=== PATIENT | female | born 1980 | race Caucasian/White ===

== ENCOUNTER 2022-06-10 09:26 | Emergency (ER) | payer OTHER ==
[~2022-06-10] VITALS: Ht 157.5 cm; Wt 54.4 kg
[2022-06-10] MEDS ORDERED: IV NORMAL SALINE 1000 ML BAG IV ONE (09:45)
[2022-06-10] MEDS ORDERED: PROCHLORPERAZINE EDISYLATE 10 MG/2 ML VIAL IM ONE (09:45)
[2022-06-10] MEDS ORDERED: METOCLOPRAMIDE HCL 10 MG/2 ML VIAL IV ONE (09:45)
[2022-06-10] MEDS ORDERED: ONDANSETRON ODT 4 MG TAB.RAPDIS SL ONE (09:45)
[2022-06-10] MEDS ORDERED: ONDANSETRON ODT 4 MG TAB.RAPDIS ONE (09:45)
[2022-06-10] MEDS ORDERED: FAMOTIDINE. 20 MG/2 ML VIAL IV ONE ×2 (09:45→09:54)
[2022-06-10] MEDS ORDERED: PROCHLORPERAZINE EDISYLATE 10 MG/2 ML VIAL ONE (09:47)
[2022-06-10] MEDS ORDERED: METOCLOPRAMIDE HCL 10 MG/2 ML VIAL ONE (09:54)
[2022-06-10 10:13] LABS: HEMATOCRIT 38.2 % (31.2-41.9); MEAN CORPUSCULAR HEMOGLOBIN 34.7 uug (24.7-32.8); MEAN CORPUSCULAR VOLUME 100.1 fL (75.5-95.3); PLATELET COUNT (AUTO) 304 K/uL (179-408)
[2022-06-10 10:30] LABS: ALANINE AMINOTRANSFERASE 34 U/L (14-59); ALKALINE PHOSPHATASE 40 U/L (50-136); ASPARTATE AMINOTRANSFERASE 27 U/L (15-37); BILIRUBIN,DIRECT 0.1 mg/dL (0.0-0.2); BILIRUBIN,TOTAL 0.3 mg/dL (0.2-1.0); CARBON DIOXIDE 24 mmol/L (21-32); CHLORIDE 106 mmol/L (98-107); CREATININE 0.7 mg/dL (0.6-1.3); GLUCOSE 123 mg/dL (74-106); LIPASE 80 U/L (73-393); POTASSIUM 3.6 mmol/L (3.5-5.1); TOTAL PROTEIN, SERUM 7.7 g/dL (6.4-8.2); UREA NITROGEN, BLOOD 7 mg/dL (7-18)
--- NOTE | 2022-06-10 11:18 | NUR ---
Pt states nausea is gone now and she now has URQ ABD pain, 4-5.
[2022-06-10] MEDS ORDERED: KETOROLAC TROMETHAMINE 30 MG INJ ONE (11:38)
[2022-06-10] MEDS ORDERED: KETOROLAC TROMETHAMINE 30 MG INJ IVP ONE (11:45)
[2022-06-10] MEDS ORDERED: NAPR500T6 PO (11:55)
[2022-06-10] MEDS ORDERED: OMEP20CA15 PO (11:55)
[2022-06-10] MEDS ORDERED: ONDA4TAB11 PO (11:55)
[2022-06-10] MEDS ORDERED: DICY10CA13 PO (11:55)
--- NOTE | 2022-06-10 12:27 | NUR ---
Removed IV intact, site okay, bandaged. Gave pt RX and d/c instructions, verbalized understanding.
== END 2022-06-10 13:00 | disposition home or self-care (01) ==
LOC: ER 09:26
DX: R11.2 Nausea with vomiting, unspecified (principal); R19.7 Diarrhea, unspecified; Z20.822 Contact with and (suspected) exposure to COVID-19
CPT/HCPCS: 99284; 96374; 96375; 96361; 87426; 80076; 80048; 83690; 85025; 87400; 84702; 36415; 96372; J3490; J1885; J2765; J0780; J7040; A4663; Q0162